=== PATIENT | male | born 1980 | race Caucasian/White ===

== ENCOUNTER → 2021-06-22 04:10 | Outpatient (CLI) | payer OTHER, SELFPAY ==
[2021-06-22 17:37] LABS: SARS-CoV-2 RNA PCR Negative
== END ==
PROVIDERS: PCP Family Medicine; Visit Provider Family Medicine
DX: R09.81 Nasal congestion (principal); Z20.822 Contact with and (suspected) exposure to COVID-19
CPT/HCPCS: C9803; U0003; U0005

== ENCOUNTER 2021-06-23 18:32 | Emergency (ER) | payer OTHER, SELFPAY ==
[2021-06-23 18:43] VITALS: BP 119/72; PULSE 55; RESP 16; TEMP 36.7; O2SAT 98
--- NOTE | 2021-06-23 19:08 | ED_ITS ---
HPI - URI/Sore Throat General Chief Complaint: Upper Respiratory Infection Stated Complaint: Sore Throat,Cough,Congestion Source: patient and RN notes reviewed Limitations: no limitations History of Present Illness HPI Narrative: The vaccinated patient, a non-smoker/nondrinker, presents with cough. Patient states he has 1/2-week history of slightly productive cough, mild improving hoarseness, and associated congestion. No fever, sore throat, earache; no loss of taste/smell, CP, vomiting/diarrhea, S OB, wheezing/sneezing- he denies he has smokers/pet triggers at home. He had a recent PCR this week which is noncontributory; as did his children-who are being treated for otitis Related Data Allergies Allergy/AdvReac Type Severity Reaction Status Date / Time No Known Allergies Allergy Verified 06/23/21 18:53 Review of Systems Review of Systems: General/Constitutional: No weight loss,fever Eyes: N0: Redness,discharge Ears/Nose/Throat: No: Epistaxis,ear discharge Respiratory: Denies: Hemoptysis Gastrointestinal: No Vomiting, Bleeding-rectal Skin: No Lumps, eruption Neurologic: No Focal Weakness,Sz Hematologic: Denies: Petechiae/Purpura Psychiatric: No: Suicida ideationl All Other Systems: Reviewed and Negative PMFSH Comments At time of signature, agree with nursing past medical, surgical, social and family history. There is no relevant family history pertinent to the presenting complaint Exam Narrative: General Appearance: Well appearing, Well nourished EYE: PERRLA, Conjunctiva clear Ears: Auditory canal normal, TM normal Nose: Rhinorrhea, Mucousal erythema Mouth/Throat: MM moist, Uvula midline, Pharyngeal erythema Neck: Supple, No adenopathy Respiratory: No respiratory distress, Breath sounds equal, Clear to auscultation Cardiovascular: RRR, No JVD Musculoskeletal: Non tender, Normal strength Skin: Warm, Dry Neurological: A&O x3, CN II-XII intact Psychiatric: Normal mood, Normal affect Course Vital Signs Vital signs: Vital Signs Temperature 98.1 F 06/23/21 18:43 Pulse Rate 55 L 06/23/21 18:43 Respiratory Rate 16 06/23/21 18:43 Blood Pressure 119/72 06/23/21 18:43 Pulse Oximetry 98 06/23/21 18:43 Temperature 98.1 F 06/23/21 18:43 Pulse Rate 55 L 06/23/21 18:43 Respiratory Rate 16 06/23/21 18:43 Blood Pressure 119/72 06/23/21 18:43 Pulse Oximetry 98 06/23/21 18:43 Discharge Plan Discharge Clinical Impression: Sinus headache Patient Disposition: Home, Self-Care Condition: Stable Instructions: Antibiotic Form, Acute Bronchitis (ED) Prescriptions: New azithromycin 250 mg tablet See Rx Instructions .ROUTE .COMPLEX Qty: 6 RF: 0 benzonatate 100 mg capsule 100 mg PO TID PRN (Reason: cough) Qty: 20 RF: 2 codeine-guaifenesin 10-100 mg/5 mL liquid 7.5 ml PO Q6H PRN (Reason: cough) Qty: 118 RF: 0 azelastine 137 mcg (0.1 %) aerosol,spray 137 mcg NASAL Q12H Qty: 30 RF: 0 Other Ambulatory Orders: SARS-CoV-2 RNA, Qual RT-PCR (Routine) Location: Determined by Patient Ordered By: Cristian Evans Follow-up/Referrals: David,Sumit Jean Baptiste MD [Primary Care Provider] -
== END 2021-06-23 19:25 | disposition home or self-care (01) ==
PROVIDERS: Emergency Provider Emergency Medicine; PCP Family Medicine
DX: R51.9 Headache, unspecified (principal)
CPT/HCPCS: 99213; G0463

== ENCOUNTER 2023-04-02 14:51 | Emergency (ER) | payer OTHER, SELFPAY ==
[2023-04-02 14:58] VITALS: BP 124/55; PULSE 107; RESP 20; TEMP 38; O2SAT 100
[2023-04-02 15:34] LABS: Hematocrit 43.4 % (42.0-52.0); Hemoglobin 14.7 g/dL (14.0-18.0); Immature Platelet Fraction Pct 17.8 % (0.9-11.2); Mean Corpuscular HGB Conc 33.9 g/dl (32-36); Mean Corpuscular Hemoglobin 28.5 pg (26-34); Mean Corpuscular Volume 84.3 fl (80-100); Platelet Count Result 122 k/mm3 (150-375); Red Blood Count 5.15 M/mm3 (4.6-6.20); Red Cell Distribution Width 12.2 % (11.5-14.5); White Blood Count 6.6 K/mm3 (4.5-10.0)
[2023-04-02 15:35] LABS: Basophils Percent Auto 0.5 % (0.2-1.2); Immature Granulocyte Absolute 0.02 K/mm3 (0.00-0.031); Immature Granulocyte Percent A 0.3 % (0-0.5); Lymphocytes Absolute Auto 0.96 K/mm3 (0.9-3.2); Lymphocytes Percent Auto 14.5 % (18.3-44.2); Mean Platelet Volume 13.3 fl (7.4-10.4); Monocytes Absolute Auto 0.2 K/mm3 (0.1-0.6); Monocytes Percent Auto 2.3 % (2.6-8.5); Neutrophils Absolute Auto 5.5 K/mm3 (1.3-6.7); Neutrophils Percent Auto 82.4 % (45.5-73.1)
[2023-04-02 15:44] LABS: Alanine Aminotransferase 36 U/L (6-50); Albumin Level 4.6 g/dL (3.5-5.1); Alkaline Phosphatase 72 U/L (38-126); Anion Gap 10 mmol/L (8-16); Aspartate Amino Transferase 50 U/L (17-59); Bilirubin,Total 2.6 mg/dL (0.2-1.3); Blood Urea Nitrogen 12 mg/dL (9-20); Calcium 9.3 mg/dL (8.4-10.2); Carbon Dioxide 21 mmol/L (22-30); Chloride 103 mmol/L (98-107); Estimated CRCL calculation 105 ml/min; Estimated Glomerular Filt Rate > 60; Glucose 110 mg/dL (65-110); Lipase 60 U/L (23-300); Potassium 3.8 mmol/L (3.4-5.0); Sodium 134 mmol/L (137-145)
[2023-04-02 18:09] VITALS: BP 130/66; PULSE 65; RESP 17; TEMP 37.7; O2SAT 100
[2023-04-02 19:20] LABS: Appearance Urine Clear (Clear); Bacteria Urine None Seen /hpf; Bilirubin Urine 2+ (Negative); Blood Urine Negative (Negative); Color Urine Dark Yellow (Yellow); Glucose Urine UA Negative (Negative); Ketones Urine 4+ mg/dL (Negative); Leukocyte Esterase Ur Negative LEU/UL (Negative); Nitrate Urine Negative (Negative); Non Pathogenic Casts 0-2; Protein Urine Trace mg/dL (Negative); RBC Urine 0-2 /hpf (0-2); Specific Grav Ur 1.018 (1.001-1.035); Squamous Epithelial Cell Urine None seen /hpf (Few); WBC Urine 0-5 /hpf
[2023-04-02 19:21] LABS: Add Urine Microscopic? YES
[2023-04-02] MEDS: FAMOTIDINE 20 MG/2 ML VIAL IV PUSH (19:22)
[2023-04-02] MEDS: SODIUM CHLORIDE 0.9% IV 1,000 ML 999 ML IV CONT ×2 (19:22→19:24)
[2023-04-02 19:57] LABS: Lactic Acid Reflex 1.1 mmol/L (0.7-2.0)
--- NOTE | 2023-04-02 20:43 | ED.NAVMDI ---
HPI - Nausea/Vomiting/Diarrhea General Chief complaint: Nausea/Vomiting/Diarrhea Stated complaint: vomiting x8 after tooth extraction today Time Seen by Provider: 04/02/23 18:35 Source: patient Mode of arrival: EMS Limitations: no limitations History of Present Illness HPI Narrative: Patient is a 42-year-old male who presents to the ED via EMS with report of nausea and vomiting. Patient reports he has had an infected tooth in his right lower mouth for some time. He was started on amoxicillin for this yesterday. He underwent dental extraction via nerve block today around noon. He states he has had this procedure performed in the past. Around 1 PM today he began having cold shaking chills. He states he could not control the shaking. Around 1:30 PM he began vomiting and reported having 8-9 episodes of vomiting afterwards. EMS was then called to bring him here. Patient reported having some discomfort in his abdomen with the vomiting, but currently denies any nausea or abdominal pain. He denies any known fever. He states he just feels weak and fatigued currently. He has not eaten anything since yesterday. Denies diarrhea or constipation. Denies recent sick contacts, cough or cold symptoms. Related Data Allergies Allergy/AdvReac Type Severity Reaction Status Date / Time No Known Allergies Allergy Verified 06/23/21 18:53 Review of Systems Review of Systems: CONSTITUTIONAL: Denies fever, chills, or sweats. ENT: See HPI. CARDIOVASCULAR: Denies chest pain, palpitations, or edema. RESPIRATORY: Denies cough or dyspnea. GASTROINTESTINAL: See HPI. GENITOURINARY: Denies dysuria or hematuria. SKIN: Denies rash or itching. MUSCULOSKELETAL: Denies back pain, joint pain, or myalgia. NEUROLOGIC: See HPI. All systems reviewed & are unremarkable except as noted in HPI and below Exam Narrative: GENERAL: Mildly ill appearing, well-nourished, non-toxic, in no acute distress. HEAD: Normocephalic, atraumatic. ENT: Dental extraction at tooth #30 right lower mouth. Clot in place. No active bleeding. Mild tenderness surrounding gumline. MMs dry. NECK: Supple. No adenopathy, no masses. RESPIRATORY: Airway patent, respirations nonlabored. Clear to auscultation bilaterally, no rales, rhonchi, wheezing. CARDIOVASCULAR: Regular rate and rhythm without murmurs, rubs, or gallops. Radial pulses 2+ and equal bilaterally. ABDOMINAL: Soft, no tenderness throughout abdomen, nondistended, no hepatosplenomegaly. Normoactive BS. MUSCULOSKELETAL: Moves all extremities. Strength/ROM intact without gross deformities. SKIN: Warm, dry, normal color. No rashes. NEURO: A&O X3. Speech clear. Cranial nerves II-XII grossly intact. Steady gait. No ataxic movements. PSYCHIATRIC: Appropriate mood and affect. Normal interaction. Course Vital Signs Vital signs: Vital Signs Temperature 100.4 F H 04/02/23 14:58 Pulse Rate 107 H 04/02/23 14:58 Respiratory Rate 20 04/02/23 14:58 Blood Pressure 124/55 L 04/02/23 14:58 Pulse Oximetry 100 04/02/23 14:58 Oxygen Delivery Room Air 04/02/23 14:58 Temperature 99.8 F H 04/02/23 18:09 Pulse Rate 65 04/02/23 18:09 Respiratory Rate 17 04/02/23 18:09 Blood Pressure 130/66 04/02/23 18:09 Pulse Oximetry 100 04/02/23 18:09 Oxygen Delivery Room Air 04/02/23 14:58 MDM - Nausea/Vomiting/Diarrhea MDM Narrative Medical decision making narrative: Patient presented to ED with acute episode of nausea and vomiting after dental extraction around noon today. Patient mildly ill-appearing upon arrival, initially tachycardic and borderline febrile, though vitals improved by the time of my evaluation. Patient appears dry. Fluids started. CBC without leukocytosis. CMP with bicarb 21, sodium 134, otherwise stable electrolytes, stable kidney function. Total bilirubin elevated to 2.6, though remainder of LFTs within normal range. Likely chronic/benign. Patient without any right upper quadrant abdo
[2023-04-02] MEDS: ACETAMINOPHEN 500 MG TABLET 1000 MG PO (23:08)
[2023-04-02] MEDS: KETOROLAC 30 MG/ML VIAL (*BKC) IV PUSH (23:09)
== END 2023-04-02 23:34 | disposition home or self-care (01) ==
PROVIDERS: Emergency Medicine; Emergency Provider Physician Assistant; PCP Family Medicine
DX: R11.2 Nausea with vomiting, unspecified (principal); Z98.818 Other dental procedure status
CPT/HCPCS: 36415; 80053; 81001; 83605; 83690; 85025; 85055; 96361; 96374; 96375; 99284; A9270; J1885; J7030